=== PATIENT | female | born 1955 | race Caucasian/White ===

== ENCOUNTER 2019-02-15 13:07 | Inpatient (IN) | payer SELFPAY ==
[~2019-02-15] VITALS: Ht 162.6 cm; Wt 96.0 kg
[2019-02-15] MEDS ORDERED: IV NORMAL SALINE 1,000ML 1,000 ML IV ONE (13:15)
[2019-02-15 13:34] LABS: BASO # 0.1 x10^3/uL (0.0-0.2); BASO % 1 % (0-3); EOS # 0.2 x10^3/uL (0.0-0.7); EOS % 2 % (0-3); HEMATOCRIT 41.7 % (36.0-47.0); HEMOGLOBIN 13.6 g/dL (12.0-15.5); LYMPH # 1.8 x10^3/uL (1.0-4.8); LYMPH % 20 % (24-48); MEAN CORPUSCULAR HEMOGLOBIN 27 pg (25-35); MEAN CORPUSCULAR HGB CONC 33 g/dL (31-37); MEAN CORPUSCULAR VOLUME 83 fL (79-100); MONO # 0.7 x10^3/uL (0.0-1.1); MONO % 8 % (0-9); NEUT # 6.3 x10^3uL (1.8-7.7); NEUT % 70 % (31-73); PLATELET COUNT 289 x10^3/uL (140-400); RED BLOOD COUNT 5.03 x10^6/uL (3.50-5.40)
[2019-02-15 13:39] LABS: CALCIUM 9.6 mg/dL (8.5-10.1); CREATININE 1.1 mg/dL (0.6-1.0); GFR 50.2; POTASSIUM 3.2 mmol/L (3.5-5.1)
--- NOTE | 2019-02-15 13:39 | PHYS DOC ---
Adult General Chief Complaint Chief Complaint: SLURRED SPEECH HPI HPI 63-year-old female presents with slurred speech. The patient tells me that she noticed a change in her speech at least 24 hours ago, but maybe up to 3 days. She is not sure exactly how long. Her family started noticing slurring of speech yesterday and it has continued today so they encouraged her to come to the hospital. The patient also has bilateral lower extremity weakness. She is able to walk, but it is difficult. She tells me that the weakness has been worse for "some time". She is mostly here because of the change in speech. She has a history of macular edema and a possible occlusion of a vessel in her eye a year ago and she has been seeing a specialist for this. She otherwise has no history of stroke or cardiac dysfunction. She has no clotting disorders. She's never had a DVT or PE. She denies fever or chills. Review of Systems Review of Systems Constitutional: Denies fever or chills [] Eyes: Denies change in visual acuity, redness, or eye pain [] HENT: Slurred speech[] Respiratory: Denies cough or shortness of breath [] Cardiovascular: No additional information not addressed in HPI [] GI: Denies abdominal pain, nausea, vomiting, bloody stools or diarrhea [] : Denies dysuria or hematuria [] Musculoskeletal: Denies back pain or joint pain [] Integument: Denies rash or skin lesions [] Neurologic: Slurred speech. Global lower extremity weakness. Denies headache, focal weakness or sensory changes [] Endocrine: Denies polyuria or polydipsia [] All other systems were reviewed and found to be within normal limits, except as documented in this note. Current Medications Current Medications Current Medications Medications (Trade) Dose Ordered Sig/Fausto Start Time Stop Time Status Last Admin Dose Admin Sodium Chloride 1,000 ml @ 1,000 mls/hr 1X ONCE 02/15/19 13:15 02/15/19 14:14 Allergies Allergies Allergies Coded Allergies Type Severity Reaction Last Updated Verified No Known Drug Allergies 02/15/19 No Physical Exam Physical Exam Constitutional: Well developed, obese, well nourished, no acute distress, non- toxic appearance. [] HENT: Normocephalic, atraumatic, bilateral external ears normal, oropharynx moist, no oral exudates, nose normal. [] Eyes: PERRLA, EOMI, conjunctiva normal, no discharge. [] Neck: Normal range of motion, no tenderness, supple, no stridor. [] Cardiovascular:Heart rate regular rhythm, systolic murmur 3/6[] Lungs & Thorax: Bilateral breath sounds clear to auscultation [] Abdomen: Bowel sounds normal, soft, no tenderness, no masses, no pulsatile masses. [] Skin: Warm, dry, no erythema, no rash. [] Back: No tenderness, no CVA tenderness. [] Extremities: No tenderness, no cyanosis, no clubbing, ROM intact, no edema. [] Neurologic: Slurred speech. Alert and oriented X 3, normal sensory function. See NIHSS[] Psychologic: Affect normal, judgement normal, mood normal. [] EKG EKG [] Radiology/Procedures Radiology/Procedures [] Course & Med Decision Making Course & Med Decision Making Pertinent Labs and Imaging studies reviewed. (See chart for details) The patient's labs are unremarkable except for slightly low potassium. She has evidence a UTI and I will treat her with Rocephin. Her initial NIH stroke scale is a 7. The lower extremity symptoms may not be new. Her head CT is significant for several areas of hypoattenuation and old findings. There is nothing hyperacute. See official read for more details. She does meet criteria for thrombolytic therapy. I discussed the patient with the hospitalist, Dr. Hendricks and he has accepted the patient for admission. he will begin a more extensive workup. 43 minutes of critical care time was spent on this patient exclusive of other billable procedures. [] Dragon Disclaimer Dragon Disclaimer This electronic medical record was generated, in whole or in part, using a voice recognition dictation system. NIH Stroke Scale: NIH Stroke Scale Response (Comments) Value Level of Consciousness: 0 Alert/Responsive 0 LOC Questions: 0 Answers both correctly 0 LOC Commands: 0 Performs both tasks 0 Best Gaze: 0 Normal 0 Visual: 0 No visual loss 0 Facial Palsy: 0 Normal, symmetrical 0 Motor - Left Arm 0 No drift 0 Motor - Right Arm 0 No drift 0 Motor - Left Leg 2 Some effort 2 Motor: Right Leg 2 Some effort 2 Limb Ataxia: 2 Two limbs 2 Sensory: 0 No loss 0 Dysathria: 1 Mild to moderate 1 Extinction and Inattention: 0 Normal 0 Total 7 Departure Departure: Impression: Primary Impression: Stroke Disposition: 09 ADMITTED INPATIENT Admitting Physician: Tc Hendricks Condition: STABLE Referrals: TRINIDAD HINDS MD (PCP) Problem Qualifiers Primary Impression: Stroke CVA mechanism: thrombosis Precerebral and cerebral artery: posterior cerebral artery Laterality of affected vessel: left Qualified Codes: I63.332 - Cerebral infarction due to thrombosis of left posterior cerebral artery OLGA NOLAN DO Feb 15, 2019 13:39
[2019-02-15 13:45] LABS: ALBUMIN 3.8 g/dL (3.4-5.0); TOTAL BILIRUBIN 0.3 mg/dL (0.2-1.0); TOTAL PROTEIN 7.7 g/dL (6.4-8.2)
[2019-02-15] MEDS ORDERED: METOPROLOL TARTRATE 5 MG/5 ML VIAL. IV ONE ×3 (13:50→15:30)
--- NOTE | 2019-02-15 13:58 | RAD ---
CT HEAD WO CONTRAST History: Strokelike symptoms grade and 24 hours. Slurred speech. Comparison: None. Technique: Noncontrast CT imaging was performed of the head. Exposure: One or more of the following individualized dose reduction techniques were utilized for this examination: 1. Automated exposure control 2. Adjustment of the mA and/or kV according to patient size 3. Use of iterative reconstruction technique. Findings: Encephalomalacia within the left occipital lobe. Chronic right superior frontal cortical and subcortical infarct. Hypodensity aeration within the right centrum semiovale. Additional hypoattenuation within the right basal ganglia. Additional foci of decreased aeration within the hemispheric white matter. No acute intracranial hemorrhage. No hydrocephalus. No mass effect. Ex vacuo dilatation of the left posterior occipital horn. Incidentally noted small pineal cyst. Imaged orbits are unremarkable. Imaged paranasal sinuses and mastoid air cells are clear. Impression: 1. Chronic appearing right centrum semiovale and basal ganglia infarcts although age indeterminate. Recommend brain MRI to further evaluate. 2. Chronic right frontal and left CARDIOLOGY CONSULTANT territory infarct. Electronically signed by: Kvng Molina DO (02/15/2019 1:55 PM) [id number]
[2019-02-15 14:40] LABS: AMPHETAMINE/METHAMPHETAMINE NEG (NEG); BARBITURATES NEG (NEG); BENZODIAZEPINES NEG (NEG); CANNABINOIDS NEG (NEG); COCAINE NEG (NEG); METHADONE NEG (NEG); OPIATES NEG (NEG); PHENCYCLIDINE NEG (NEG)
[2019-02-15 14:49] LABS: BACTERIA,URINE MANY /HPF (0-FEW); BILIRUBIN,URINE NEG (NEG); CLARITY,URINE HAZY; COLOR,URINE YELLOW; GLUCOSE,URINE NEG (NEG); NITRITE,URINE NEG (NEG); SQUAMOUS EPITHELIAL CELL,UR MANY /LPF; UROBILINOGEN,URINE 0.2 mg/dL (0.2 mg/dL)
[2019-02-15] MEDS ORDERED: cefTRIAXone SODIUM 1 GM VIAL ONE (15:10)
[2019-02-15] MEDS ORDERED: IV NORMAL SALINE 50ML 50 ML ONE (15:10)
[2019-02-15 19:14] VITALS: BP 154/81
[2019-02-15] MEDS ORDERED: TRAV5DRO EACHEYE (19:40)
[2019-02-15] MEDS ORDERED: LISI1TAB20 PO (19:40)
[2019-02-15] MEDS ORDERED: METO-247 PO (19:40)
[2019-02-15] MEDS ORDERED: POTASSIUM CHLORIDE 20 MEQ TABLET.ER. PO ONE (21:00)
[2019-02-15] MEDS ORDERED: LATANOPROST 0.005% OPHTH SOLUTION 2.5ML BOTTLE. OU SCH (21:00)
[2019-02-15 21:01] VITALS: BP 147/87
[2019-02-15 22:00] VITALS: BP 140/65
[2019-02-15 23:00] VITALS: BP 127/70
[2019-02-16] VITALS (14 sets, daily range): BP systolic 127–175; BP diastolic 60–98
[2019-02-16 06:33] LABS: ALBUMIN 2.9 g/dL (3.4-5.0); ALBUMIN/GLOBULIN RATIO 0.9 (1.0-1.7); CALCIUM 8.4 mg/dL (8.5-10.1); CREATININE 0.9 mg/dL (0.6-1.0); GFR 63.2; POTASSIUM 3.7 mmol/L (3.5-5.1); TOTAL BILIRUBIN 0.4 mg/dL (0.2-1.0); TOTAL PROTEIN 6.2 g/dL (6.4-8.2)
--- NOTE | 2019-02-16 07:45 | PDOC2 ---
MINA SEGUNDO SOFTWARE PROJECT LEAD 02/16/19 0745: CARDIAC CONSULT DATE OF CONSULT Date Of Consult DATE: 02/16/19 TIME: 07:38 REASON FOR CONSULT Reason for Consult Hypertension REFERRING PHYSICIAN Referring Physician Dr. Hendricks SOURCE Source: Chart review, Patient HPI History of Present Illness This is a 63 yo female who presented secondary to slurred speech. Patient reports noticing a change in her speech about 2 days ago. Family encouraged her to seek medical help. Called PCP, Dr. Xiao, who referred her to go the the ED for further evaluation and treatment. Has a history of hypertension. Reports compliance with medications. Blood pressure significantly elevated upon arrival and was initiated on Cardene gtt. Denies any SUN, CP, dizziness, palpitations, SOA, nausea/vomiting, or extremity weakness. Speech has slightly improved, but continues to be slurred from baseline. 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 Has been out of insurance coverage since December. Had to sell home and relocated to an apartment in [place] that is closer to her husbands work. PAST MEDICAL HISTORY Cardiovascular: HTN Musculoskeletal: Osteoarthritis PAST SURGICAL HISTORY Past Surgical History: Tubal Ligation, Tonsillectomy FAMILY HISTORY Family History: Hypertension SOCIAL HISTORY Smoke: No ALCOHOL: none Drugs: None Lives: with Family CURRENT MEDICATIONS Current Medications Current Medications Sodium Chloride 1,000 ml @ 1,000 mls/hr 1X ONCE IV Last administered on 02/15/19at 13:38; Start 02/15/19 at 13:15; Stop 02/15/19 at 14:14; Status DC Metoprolol Tartrate (Lopressor Vial) 5 mg 1X ONCE IV Last administered on 02/15/19at 13:53; Start 02/15/19 at 14:00; Stop 02/15/19 at 14:01; Status DC Metoprolol Tartrate (Lopressor Vial) 5 mg STK-MED ONCE IV ; Start 02/15/19 at 13:50; Stop 02/15/19 at 13:50; Status DC Ceftriaxone Sodium 1 gm/ Sodium Chloride 50 ml @ 100 mls/hr 1X ONCE IV Last administered on 02/15/19at 15:26; Start 02/15/19 at 15:15; Stop 02/15/19 at 15:44; Status DC Metoprolol Tartrate (Lopressor Vial) 5 mg 1X ONCE IV Last administered on 02/15/19at 15:22; Start 02/15/19 at 15:30; Stop 02/15/19 at 15:31; Status DC Sodium Chloride 50 ml @ As Directed STK-MED ONCE .ROUTE ; Start 02/15/19 at 15:10; Stop 02/15/19 at 15:10; Status DC Ceftriaxone Sodium (Rocephin) 1 gm STK-MED ONCE .ROUTE ; Start 02/15/19 at 15:10; Stop 02/15/19 at 15:10; Status DC Nicardipine HCl 50 mg/Sodium Chloride 270 ml @ 27 mls/hr CONT PRN IV SEE I/O RECORD Last administered on 02/15/19at 16:55; Start 02/15/19 at 16:30 Lisinopril (Prinivil) 20 mg DAILY PO ; Start 02/16/19 at 09:00 Metoprolol Succinate (Toprol Xl) 100 mg DAILY PO ; Start 02/16/19 at 09:00 Latanoprost (Xalatan) 1 drop QHS OU ; Start 02/15/19 at 21:00; Stop 02/15/19 at 21:06; Status DC Potassium Chloride (Klor-Con) 40 meq 1X ONCE PO Last administered on 02/15/19at 20:52; Start 02/15/19 at 21:00; Stop 02/15/19 at 21:01; Status DC Hydrochlorothiazide (Hydrodiuril) 25 mg DAILY PO ; Start 02/16/19 at 09:00 Non-Formulary Medication 1 ea QHS OU ; Start 02/16/19 at 21:00 Active Scripts Active Reported Travatan Z (Travoprost) 5 Ml Drops 1 Drop EACHEYE QHS Metoprolol Succinate ( Xl ) (Metoprolol Succinate) 100 Mg Tab.er.24h 100 Mg PO DAILY Lisinopril-Hctz 20-25 Mg Tab (Lisinopril/Hydrochlorothiazide) 1 Each Tablet 1 Tab PO DAILY ALLERGIES Allergies: Uncoded Allergies: codein (Allergy, Mild, Nausea and Vomiting, 02/15/19) ROS Review of Systems 14 point ROS conducted with pertinent positives noted above in HPI PHYSICAL EXAM General: Alert, Oriented X3, Cooperative, No acute distress HEENT: Atraumatic, Mucous membr. moist/pink Lungs: Clear to auscultation, Normal air movement Heart: Regular rate, Other Abdomen: Soft, No tenderness Extremities: No edema, Normal pulses Skin: No breakdown Neuro: Sensation intact, Other (slurred speach) Psych/Mental Status: Mental status NL, Other (tearful) MUSCULOSKELETAL: Osteoarthritic changes both hands VITALS Vital Signs Vital Signs Date Time Temp Pulse Resp B/P (MAP) Pulse Ox O2 Delivery O2 Flow Rate FiO2 02/16/19 07:28 89 17 150/77 (101) 98 Room Air 02/16/19 04:00 98.2 LABS LABS Laboratory Tests Test 02/15/19 13:10 02/15/19 14:15 02/16/19 05:34 White Blood Count 9.0 x10^3/uL (4.0-11.0) Red Blood Count 5.03 x10^6/uL (3.50-5.40) Hemoglobin 13.6 g/dL (12.0-15.5) Hematocrit 41.7 % (36.0-47.0) Mean Corpuscular Volume 83 fL (79-100) Mean Corpuscular Hemoglobin 27 pg (25-35) Mean Corpuscular Hemoglobin Concent 33 g/dL (31-37) Red Cell Distribution Width 16.0 % (11.5-14.5) Platelet Count 289 x10^3/uL (140-400) Neutrophils (%) (Auto) 70 % (31-73) Lymphocytes (%) (Auto) 20 % (24-48) Monocytes (%) (Auto) 8 % (0-9) Eosinophils (%) (Auto) 2 % (0-3) Basophils (%) (Auto) 1 % (0-3) Neutrophils # (Auto) 6.3 x10^3uL (1.8-7.7) Lymphocytes # (Auto) 1.8 x10^3/uL (1.0-4.8) Monocytes # (Auto) 0.7 x10^3/uL (0.0-1.1) Eosinophils # (Auto) 0.2 x10^3/uL (0.0-0.7) Basophils # (Auto) 0.1 x10^3/uL (0.0-0.2) Prothrombin Time 9.7 SEC (9.4-11.4) Prothromb Time International Ratio 0.9 (0.9-1.1) Activated Partial Thromboplast Time 28 SEC (23-33) Sodium Level 133 mmol/L (136-145) 141 mmol/L (136-145) Potassium Level 3.2 mmol/L (3.5-5.1) 3.7 mmol/L (3.5-5.1) Chloride Level 99 mmol/L (98-107) 109 mmol/L (98-107) Carbon Dioxide Level 29 mmol/L (21-32) 27 mmol/L (21-32) Anion Gap 5 (6-14) 5 (6-14) Blood Urea Nitrogen 13 mg/dL (7-20) 9 mg/dL (7-20) Creatinine 1.1 mg/dL (0.6-1.0) 0.9 mg/dL (0.6-1.0) Estimated GFR (Cockcroft-Gault) 50.2 63.2 BUN/Creatinine Ratio 12 (6-20) 10 (6-20) Glucose Level 106 mg/dL (70-99) 95 mg/dL (70-99) Calcium Level 9.6 mg/dL (8.5-10.1) 8.4 mg/dL (8.5-10.1) Total Bilirubin 0.3 mg/dL (0.2-1.0) 0.4 mg/dL (0.2-1.0) Aspartate Amino Transf (AST/SGOT) 21 U/L (15-37) 20 U/L (15-37) Alanine Aminotransferase (ALT/SGPT) 30 U/L (14-59) 26 U/L (14-59) Alkaline Phosphatase 106 U/L (46-116) 71 U/L (46-116) Total Protein 7.7 g/dL (6.4-8.2) 6.2 g/dL (6.4-8.2) Albumin 3.8 g/dL (3.4-5.0) 2.9 g/dL (3.4-5.0) Albumin/Globulin Ratio 1.0 (1.0-1.7) 0.9 (1.0-1.7) Urine Collection Type Unknown Urine Color Yellow Urine Clarity Hazy Urine pH 5.5 Urine Specific [place] 1.025 Urine Protein Neg (NEG-TRACE) Urine Glucose (UA) Neg mg/dL (NEG) Urine Ketones (Stick) 15 mg/dL (NEG) Urine Blood Neg (NEG) Urine Nitrite Neg (NEG) Urine Bilirubin Neg (NEG) Urine Urobilinogen Dipstick 0.2 mg/dL (0.2 mg/dL) Urine Leukocyte Esterase Mod (NEG) Urine RBC 1-2 /HPF (0-2) Urine WBC 11-20 /HPF (0-4) Urine Squamous Epithelial Cells Many /LPF Urine Bacteria Many /HPF (0-FEW) Urine Opiates Screen Neg (NEG) Urine Methadone Screen Neg (NEG) Urine Barbiturates Neg (NEG) Urine Phencyclidine Screen Neg (NEG) Urine Amphetamine/Methamphetamine Neg (NEG) Urine Benzodiazepines Screen Neg (NEG) Urine Cocaine Screen Neg (NEG) Urine Cannabinoids Screen Neg (NEG) Urine Ethyl Alcohol Neg (NEG) ASSESSMENT/PLAN Assessment/Plan 1. Slurred speech; onset 2 days ago 2. Hypertensive urgency; off Cardene gtt 3. 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 Further workup per neuro ROYER LEE MD 02/18/19 0547: CARDIAC CONSULT ASSESSMENT/PLAN Assessment/Plan Late entry for 02/16/2019 Pt. seen and examined. Agree with above DISK SANDER note, Discussed with family. . EKG/echo wnl. Negative carotid doppler. Discussed that she could consider outpt event recorder. ASA for now and consider anticoagulation based on neuro eval. MINA SEGUNDO APRN Feb 16, 2019 07:45 ROYER LEE MD Feb 18, 2019 05:47
[2019-02-16] MEDS ORDERED: LISINOPRIL 20 MG TABLET PO SCH (09:00)
[2019-02-16] MEDS: hydroCHLOROthiazide 25 MG TABLET PO SCH (09:44)
[2019-02-16] MEDS: METOPROLOL SUCC 24HR ER 50 MG TAB.ER.24H. PO SCH (09:45)
[2019-02-16] MEDS: ASPIRIN 325 MG TABLET PO SCH (10:17)
--- NOTE | 2019-02-16 11:53 | RAD ---
Carotid doppler ultrasound History: CVA Multiple grayscale, color, and duplex spectral analysis waveform sonographic images were acquired of the carotid, subclavian, and vertebral arteries. Comparison: None Findings: RIGHT: PSV cm/sec EDV cm/sec Common carotid artery 56 15 Maximal internal carotid artery 49 16 External carotid artery 83 Vertebral artery 25 ICA/CCA ratio 0.9 LEFT: PSV cm/sec EDV cm/sec Common carotid artery 63 19 Maximum internal carotid artery 64 23 External carotid artery 95 Vertebral artery 45 ICA/CCA ratio 1 Velocities used to determine stenosis are known to correlate with NASCET angiographic criteria. There is antegrade flow in the bilateral vertebral arteries. There is mild plaque bilaterally. Impression: 1. There is no evidence of a hemodynamically significant stenosis. There is mild plaque bilaterally. Electronically signed by: Dakota Greene MD (02/16/2019 11:50 AM) [facility]
--- NOTE | 2019-02-16 15:44 | HP ---
ADMIT DATE: 02/15/2019 HISTORY OF PRESENT ILLNESS: The patient is a 63-year-old female patient, who presented to the Emergency Room secondary to slurring of speech. She reports that she noticed change in her speech about 2 days ago. Her family encouraged her to seek medical help. She called her primary care physician who referred her to the Emergency Room for further evaluation and treatment. She apparently has history of hypertension and reports compliance with medication; however, her blood pressure was significantly elevated on arrival, she was started on Cardizem drip. She denied any headache, chest pain, dizziness, lightheadedness, palpitation, nausea, vomiting, or extremity weakness. She, however, continued to have slurring of speech. 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 She has been out of insurance coverage since December and apparently she sold her home and relocated to an apartment in [place] that is closer to her 's work. She was investigated in the Emergency Room, had a CT scan of the head, which showed chronic appearing right centrum semiovale and basal ganglia infarct, although age indeterminate. Has also chronic right frontal and left posterior cerebral artery territory infarct. The patient was admitted to control blood pressure, check her carotid Doppler ultrasound also, do an echocardiogram as her multiple infarcts indicating that this might be cardioembolic in nature. PAST MEDICAL HISTORY: Significant for hypertension, generalized osteoarthritis. PAST SURGICAL HISTORY: Significant for tubal ligation, tonsillectomy. FAMILY HISTORY: Positive for hypertension. SOCIAL HISTORY: She is . She does not smoke, drink alcohol or use any recreational drugs. 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 MEDICATIONS: She is currently on following medications: She is on metoprolol succinate 100 mg once a day, lisinopril/hydrochlorothiazide 20/25 one tablet once a day, and travoprost for Travatan 1 drop to both eyes at bedtime. REVIEW OF SYSTEMS: As per history of present illness. PHYSICAL EXAMINATION: GENERAL: On arrival to the Emergency Room, there was no pallor, jaundice, cyanosis or thyromegaly. No jugular venous distention. No lower limb edema. VITAL SIGNS: Her heart rate was 116, blood pressure was 171/98, temperature 98.5, respiratory rate was 15 and oxygen saturation was 98% on room air. HEAD, EYES, EARS, NOSE AND THROAT: Showed normocephalic, atraumatic. NECK: Supple. HEART: Showed normal first and second heart sounds. No gallop, rub or murmur. CHEST: Clear to auscultation. No crepitation or rhonchi. ABDOMEN: Distended, soft, nontender. NEUROLOGIC: She has slurring speech. She was alert, oriented x 3 with normal specific. function. Her affect, judgment and mood were normal. LABORATORY DATA: Showed that her white cell count was 9000, hemoglobin 13.6, hematocrit 41.7, MCV 83 and platelet count 289,000 with normal manual differential. Her chemistry showed a serum sodium 133, potassium 3.2, chloride 99, bicarbonate 29, anion gap of 5, BUN 13, creatinine 1.1, estimated GFR was 50 mL per minute. Her glucose was 106, calcium was 9.6. Total bilirubin, AST, ALT, alkaline phosphatase were normal. Her total protein was 7.7, albumin 3.8. Her prothrombin time, INR and aPTT are all normal. Urinalysis showed the urine was yellow, hazy with a pH of 5.5, specific gravity of 1.025. The urine was negative for protein, glucose, trace of ketones, negative for blood, nitrite. There are moderate amount of leukocyte esterase, 1-2 rbc's, 11-20 wbc's, and many bacteria. Toxic screen was essentially negative and her CT scan of the head showed that she has encephalomalacia within the left occipital lobe. She has chronic right superior frontal lobe cortical and subcortical infarct, hypodensity, aeration within the right centrum semiovale. Additional hypoattenuation within the right basal ganglia, additional foci of decreased aeration within the hemispheric white matter, no acute intracranial hemorrhage, no hydrocephalus, no mass effect, ex vacuo dilatation of the left posterior occipital horn. Incidentally noted small pineal cyst. Imaged orbits are unremarkable. Paranasal sinuses and mastoid cells are clear. The impression is the patient has chronic appearing right centrum semiovale and basal ganglia infarct, although age indeterminate. Has chronic right frontal and left posterior cerebral artery territory infarct. ASSESSMENT AND PLAN: The patient was admitted to investigate to evaluate further. We will check her bilateral carotid artery ultrasound as well as echocardiogram with bubble study and fasting lipid profile. CELIO VALDOVINOS MD DR: Jill JOB#: [id number] / [id number]
--- NOTE | 2019-02-16 15:53 | CARD ---
MR#: [id number] Date of Study: 02/16/2019 Ordering Physician: MINA SEGUNDO, Referring Physician: MINA SEGUNDO, Tech: Ann Nunez APPROVED REPORT EXAM: Two-dimensional and M-mode echocardiogram with Doppler and color Doppler. Other Information Quality : AverageHR: 100bpm INDICATION CVA/TIA Atrial Fibrillation Echo Enhancing Agent Indication: Rule Out Septal Defect Agent/Amount Used: Agitated [id number] 2D DIMENSIONS RVDd2.9 (2.9-3.5cm)Left Atrium(2D)2.7 (1.6-4.0cm) IVSd1.3 (0.7-1.1cm)Aortic Root(2D)2.6 (2.0-3.7cm) LVDd4.4 (3.9-5.9cm)LVOT Diameter1.9 (1.8-2.4cm) PWd1.0 (0.7-1.1cm)LVDs1.7 (2.5-4.0cm) FS (%) 61.9 %SV81.0 ml LVEF(%)90.8 (>50%) Aortic Valve AoV Peak Rojelio.169.3cm/sAoV VTI33.0cm AO Peak GR.11.5mmHgLVOT Peak Rojelio.152.1cm/s LVOT VTI 31.84cmAO Mean GR.7mmHg CARLO (VMAX)2.32ub5NSW (VTI)2.77cm2 Mitral Valve MV E Uhhlrkjx27.4cm/sMV DECEL [id number] MV A Rdssyhpp963.3cm/sE/A Ratio0.8 Pulmonary Valve PV Peak Knarwxqj32.1cm/sPV Peak Grad.4mmHg Tricuspid Valve TR P. Ncfryrnz371tw/sRAP MRQPSFTN8vmRr TR Peak Gr.56exYiEUUB50bjPm Pulmonary Vein S1 Keorpwdk12.3cm/sD2 Xombzcvi25.4cm/s LEFT VENTRICLE The left ventricle is normal size. There is mild to moderate concentric left ventricular hypertrophy. The left ventricular systolic function is normal. The Ejection Fraction is 65-70%. There is normal L V segmental wall motion. Transmitral Doppler flow pattern is Grade I-abnormal relaxation pattern. RIGHT VENTRICLE The right ventricle is normal size. There is normal right ventricular wall thickness. The right ventr icular systolic function is normal. ATRIA The left atrium size is normal. The right atrium size is normal. The interatrial septum is intact wit h no evidence for an atrial septal defect or patent foramen ovale as noted on 2-D or Doppler imaging. Injection of bubbles documented no interatrial shunt. AORTIC VALVE The aortic valve is normal in structure and function. Doppler and Color Flow revealed no significant aortic regurgitation. There is no significant aortic valvular stenosis. MITRAL VALVE The mitral valve is normal in structure and function. There is no evidence of mitral valve prolapse. There is no mitral valve stenosis. Doppler and Color Flow revealed no mitral valve regurgitation note d. TRICUSPID VALVE The tricuspid valve is normal in structure and function. Doppler and Color Flow revealed trace tricus pid regurgitation with an estimated PAP of 21 mmHg. There is no tricuspid valve stenosis. PULMONIC VALVE The pulmonic valve is not well visualized. Doppler and Color Flow revealed no pulmonic valvular regur gitation. GREAT VESSELS The aortic root is normal in size. The IVC was not well visualized. PERICARDIAL EFFUSION There is no evidence of significant pericardial effusion. Critical Notification Critical Value: No <Conclusion> The left ventricular systolic function is normal. The Ejection Fraction is 65-70%. There is normal LV segmental wall motion. Transmitral Doppler flow pattern is Grade I-abnormal relaxation pattern. Trace tricuspid regurgitation with an estimated PAP of 21 mmHg. There is no evidence of significant pericardial effusion. Injection of bubbles documented no interatrial shunt. Signed by : Nahum Valdivia, Electronically Approved : 02/16/2019 15:52:53
[2019-02-16] MEDS: LISINOPRIL 20 MG TABLET PO SCH (17:20)
[2019-02-16] MEDS ORDERED: TRAVOPROST 0.004% OU SCH (21:00)
[2019-02-16] MEDS ORDERED: SIMVASTATIN 10 MG TABLET PO SCH (21:00)
--- NOTE | 2019-02-17 00:32 | CONS ---
DATE OF CONSULTATION: REFERRING PHYSICIAN: Dr. Hendricks. REASON FOR CONSULTATION: Rule out stroke versus TIA. HISTORY OF PRESENT ILLNESS: This is a 63-year-old right-handed female who was admitted to the Emergency Room on account of a sudden onset of slurred speech of 2 days' duration. On the admission, the patient was found to have high blood pressure. She denies chest pain, shortness of breath or palpitation, dysphagia, diplopia, headaches or weakness. 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 The patient stated she never had any stroke workup in the past. PAST MEDICAL HISTORY: Significant for macular edema, required intraocular injection, cataracts, glaucoma, hypertension, and osteoarthritis. PAST SURGICAL HISTORY: Significant for tonsillectomy and adenoidectomy, x 2 and tubal ligation. SOCIAL HISTORY: The patient is . She denies smoking, alcohol drinking, or illicit drug use. CURRENT HOME MEDICATIONS: Lisinopril/hydrochlorothiazide, metoprolol, travoprost eyedrops for glaucoma. ALLERGIES: CODEINE. REVIEW OF SYSTEMS: A 10-point review of system was performed as mentioned above in history of present illness. Also, the patient complains of pain of the right hip and left knee likely secondary to osteoarthritis and forearm numbness and paresthesia of the hands along with mild slurred speech. PHYSICAL EXAMINATION: GENERAL: Well-developed, well-nourished female, not in acute distress. She weighs 96.6 kilos. VITAL SIGNS: Blood pressure 175/89, respiratory rate 20, pulse is 101 and regular, oxygen saturation is 98% on room air. HEENT: Normocephalic, atraumatic, otherwise unremarkable. NECK: Supple. Negative for carotid bruit, lymphadenopathy or thyromegaly. LUNGS: Clear to A and P. CARDIOVASCULAR: Tachycardia, but no murmur. Normal S1, S2. ABDOMEN: Soft. Bowel sounds positive. EXTREMITIES: Negative for cyanosis, clubbing or pitting edema. NEUROLOGICAL EXAMINATION: Mental status; the patient is alert and oriented x 3. Speech is fluent. There is no language dysfunction. There is no dysarthria. Memory, judgment, and abstract thinking are normal. The patient denies hallucination or delusion. CRANIAL NERVES: Visual peters are full. The pupils are reactive to light and accommodation. Extraocular movements are intact. There is no nystagmus. There is no facial motor or sensory deficit. Hearing is intact bilaterally. The palate is elevated symmetrically. Sternocleidomastoid muscles are powerful bilaterally. The patient shrugs her shoulder symmetrically, protrudes her tongue in the midline without fasciculation or atrophy. MOTOR EXAMINATION: No focal muscle bulk was seen. The tone is normal. The strength is 5/5 throughout. SENSORY EXAMINATION: Revealed normal pinprick, light touch, vibratory and position senses. Deep tendon reflexes were asymmetric and hypoactive with absent Achilles responses. Gait: The stance is steady. LABORATORY DATA: CBC revealed white blood cells of 9000, hemoglobin 13.6, hematocrit 41.7, platelet count 289,000. Chemistry revealed sodium of 141, potassium 3.7, chloride 109, CO2 of 27, BUN 9, creatinine 0.9, calcium 8.4. ____ PT and PTT are normal. Urinalysis is consistent with moderate urinary leukocyte esterase and white blood cells along with many bacteria. Urine drug screen is negative. IMPRESSION: 1. New onset of slurred speech with abnormal head CT scan consistent with multiple infarcts in different territories, rule out cardiac embolisms. 2. Longstanding history of hypertension, glaucoma, cataracts, and osteoarthritis. RECOMMENDATION: 1. Stroke pathway includes brain MRI, echocardiogram, carotid Doppler study, lipid profile, speech therapy. 2. We will start the patient on aspirin 325 mg. 3. Continue with current management initiated by Dr. Hendricks. M Randee DSOUZA MD DR: DANIEL/oneil JOB#: [id number] / [id number]
--- NOTE | 2019-02-17 02:48 | PN ---
DATE: SUBJECTIVE: The patient is a 63-year-old female patient who was admitted yesterday with slurring of speech that has started few days ago. Denied any localized weakness. She had a CT scan, which showed that she has multiple infarcts. She has chronic appearing right centrum semiovale and ganglia infarcts, although age indeterminate. She has also chronic right frontal and left posterior cerebral artery territory infarct. She was admitted, started on Cardene drip because his blood pressure was high and was started on metoprolol, aspirin as well as lisinopril and she was evaluated by the neurologist as well as the driveway sealer. She has had bilateral carotid Doppler ultrasound, which showed that there is no evidence of hemodynamically significant stenosis. There is mild plaque bilaterally. She also had had an echocardiogram done, which basically showed that she has left ventricular systolic function is normal, ejection fraction 65-70%. There is normal left ventricular segmental wall motion. Transmitral Doppler flow pattern is grade 1 abnormal relaxation pattern. There are trace tricuspid regurgitation, estimated pulmonary artery pressure 21. There is no evidence of significant pericardial effusion and injection of bubbles documented, no interatrial shunt. PHYSICAL EXAMINATION: GENERAL: When I examined her this afternoon, she was sitting comfortably in her chair, in no apparent respiratory distress. No pallor, jaundice, cyanosis or thyromegaly. No jugular venous distention. No limb edema. VITAL SIGNS: Her heart rate was 92, blood pressure was 168/86, temperature was 98.2, respiratory rate was 18 and oxygen saturation was 96% on room air. HEAD, EYES, EARS, NOSE AND THROAT: Showed normocephalic, atraumatic. NECK: Supple. HEART: Showed normal first and second heart sounds. No gallop or murmur. CHEST: Clear to auscultation. No crepitation or rhonchi. ABDOMEN: Distended, soft, nontender. NEUROLOGIC: She does have slurring speech. Other cranial nerves seemed to be intact. She moves all extremities without difficulty. She ambulates with a walker. LABORATORY DATA: Her lab work this morning showed a serum sodium 141, potassium 3.7, chloride 109, bicarbonate 27, anion gap of 5, BUN 9, creatinine 0.9, estimated GFR was 63 mL per minute. Glucose was 95, calcium was 8.4. Total bilirubin, AST, ALT, alkaline phosphatase were normal. Total protein 6.2, albumin 2.9. Her prothrombin time, INR and aPTT were normal. Toxic screen was negative. ASSESSMENT: In summary, this is a 63-year-old female patient who came in with slurring of speech. Her CT scan showed multiple infarcts involving the basal ganglia, chronic right frontal and left posterior cerebral artery infarct. She did have also hypokalemia and mild hyponatremia and has hypertensive urgency. Her echocardiogram did not show any evidence of intracardiac shunt and her ejection fraction was 65-70%. The bilateral carotid Doppler ultrasound showed no evidence of significant hemodynamic stenosis. PLAN: My plan is to increase her lisinopril to 20 mg twice a day and we will wait for her fasting lipid profile. She probably needs to be started on lipid lowering agent and she can be discharged home tomorrow. CELIO VALDOVINOS MD DR: JONATHAN/oneil JOB#: [id number] / [id number]
[2019-02-17 05:49] VITALS: BP 168/70
--- NOTE | 2019-02-17 08:17 | PDOC ---
CARDIO Progress Notes Date & Time Date of Service DATE: 02/17/19 TIME: 08:10 Time of Evaluation 08:10 Subjective Notes speech continues to be slurred Vitals Vitals Vital Signs Date Time Temp Pulse Resp B/P (MAP) Pulse Ox O2 Delivery O2 Flow Rate FiO2 02/17/19 07:52 Room Air 02/17/19 05:49 97.9 80 18 168/70 (102) 98 Weight Weight [ ] Input and Output I.O. Intake and Output 02/17/19 06:59 Intake Total 1600 ml Output Total 1 ml Balance 1599 ml Intake Oral 1600 ml Output Stool Total 1 ml # Voids 7 Laboratory Labs Laboratory Tests Test 02/15/19 13:10 02/15/19 14:15 02/16/19 05:34 02/16/19 14:00 White Blood Count 9.0 x10^3/uL (4.0-11.0) Red Blood Count 5.03 x10^6/uL (3.50-5.40) Hemoglobin 13.6 g/dL (12.0-15.5) Hematocrit 41.7 % (36.0-47.0) Mean Corpuscular Volume 83 fL (79-100) Mean Corpuscular Hemoglobin 27 pg (25-35) Mean Corpuscular Hemoglobin Concent 33 g/dL (31-37) Red Cell Distribution Width 16.0 % (11.5-14.5) Platelet Count 289 x10^3/uL (140-400) Neutrophils (%) (Auto) 70 % (31-73) Lymphocytes (%) (Auto) 20 % (24-48) Monocytes (%) (Auto) 8 % (0-9) Eosinophils (%) (Auto) 2 % (0-3) Basophils (%) (Auto) 1 % (0-3) Neutrophils # (Auto) 6.3 x10^3uL (1.8-7.7) Lymphocytes # (Auto) 1.8 x10^3/uL (1.0-4.8) Monocytes # (Auto) 0.7 x10^3/uL (0.0-1.1) Eosinophils # (Auto) 0.2 x10^3/uL (0.0-0.7) Basophils # (Auto) 0.1 x10^3/uL (0.0-0.2) Prothrombin Time 9.7 SEC (9.4-11.4) Prothromb Time International Ratio 0.9 (0.9-1.1) Activated Partial Thromboplast Time 28 SEC (23-33) Sodium Level 133 mmol/L (136-145) 141 mmol/L (136-145) Potassium Level 3.2 mmol/L (3.5-5.1) 3.7 mmol/L (3.5-5.1) Chloride Level 99 mmol/L (98-107) 109 mmol/L (98-107) Carbon Dioxide Level 29 mmol/L (21-32) 27 mmol/L (21-32) Anion Gap 5 (6-14) 5 (6-14) Blood Urea Nitrogen 13 mg/dL (7-20) 9 mg/dL (7-20) Creatinine 1.1 mg/dL (0.6-1.0) 0.9 mg/dL (0.6-1.0) Estimated GFR (Cockcroft-Gault) 50.2 63.2 BUN/Creatinine Ratio 12 (6-20) 10 (6-20) Glucose Level 106 mg/dL (70-99) 95 mg/dL (70-99) Calcium Level 9.6 mg/dL (8.5-10.1) 8.4 mg/dL (8.5-10.1) Total Bilirubin 0.3 mg/dL (0.2-1.0) 0.4 mg/dL (0.2-1.0) Aspartate Amino Transf (AST/SGOT) 21 U/L (15-37) 20 U/L (15-37) Alanine Aminotransferase (ALT/SGPT) 30 U/L (14-59) 26 U/L (14-59) Alkaline Phosphatase 106 U/L (46-116) 71 U/L (46-116) Total Protein 7.7 g/dL (6.4-8.2) 6.2 g/dL (6.4-8.2) Albumin 3.8 g/dL (3.4-5.0) 2.9 g/dL (3.4-5.0) Albumin/Globulin Ratio 1.0 (1.0-1.7) 0.9 (1.0-1.7) Urine Collection Type Unknown Urine Color Yellow Urine Clarity Hazy Urine pH 5.5 Urine Specific [place] 1.025 Urine Protein Neg (NEG-TRACE) Urine Glucose (UA) Neg mg/dL (NEG) Urine Ketones (Stick) 15 mg/dL (NEG) Urine Blood Neg (NEG) Urine Nitrite Neg (NEG) Urine Bilirubin Neg (NEG) Urine Urobilinogen Dipstick 0.2 mg/dL (0.2 mg/dL) Urine Leukocyte Esterase Mod (NEG) Urine RBC 1-2 /HPF (0-2) Urine WBC 11-20 /HPF (0-4) Urine Squamous Epithelial Cells Many /LPF Urine Bacteria Many /HPF (0-FEW) Urine Opiates Screen Neg (NEG) Urine Methadone Screen Neg (NEG) Urine Barbiturates Neg (NEG) Urine Phencyclidine Screen Neg (NEG) Urine Amphetamine/Methamphetamine Neg (NEG) Urine Benzodiazepines Screen Neg (NEG) Urine Cocaine Screen Neg (NEG) Urine Cannabinoids Screen Neg (NEG) Urine Ethyl Alcohol Neg (NEG) Thyroid Stimulating Hormone (TSH) 1.281 uIU/mL (0.358-3.740) Triglycerides Level 78 mg/dL (0-150) Cholesterol Level 210 mg/dL (0-200) LDL Cholesterol, Calculated 134 mg/dL (0-100) VLDL Cholesterol, Calculated 15 mg/dL (0-40) Non-HDL Cholesterol Calculated 149 mg/dL (0-129) HDL Cholesterol 61 mg/dL (40-60) Cholesterol/HDL Ratio 3.0 Microbiology Micro Microbiology 02/15/19 Urine Culture - Final, Complete 02/15/19 Urine Culture Result 1 (LD) - Final, Complete Physical Exams HEENT: Neck Supple W Full Motion Chest: Symmetric Lungs: Clear to Auscultation Heart: S1S2, RRR Abdomen: Soft N/T Extremities: No Edema Neurology: alert, oriented, follow commands Assessment Assessment 1. New onset slurred speech. CT head with multiple chronic infarcts. Echo showed preserved LV systolic function. No evidence of interatrial shunt. 2. Hypertensive urgency; remains elevated 3. Dyslipidemia 4. Hypokalemia; resolved Recommendations Secondary prevention Increase statin Add amlodipine for BP control Will ideally need outpatient event monitor or ILR to r/o contributing arrhythmias such as AFIB/flutter, but unlikely that patient will be able to afford this. PT/OT/ST Supportive care MINA SEGUNDO APRN Feb 17, 2019 08:17
[2019-02-17] MEDS: ASPIRIN 325 MG TABLET PO SCH (08:40)
[2019-02-17] MEDS: LISINOPRIL 20 MG TABLET PO SCH (08:41)
[2019-02-17] MEDS: METOPROLOL SUCC 24HR ER 50 MG TAB.ER.24H. PO SCH (08:41)
[2019-02-17] MEDS: hydroCHLOROthiazide 25 MG TABLET PO SCH (08:42)
[2019-02-17] MEDS ORDERED: amLODIPine BESYLATE 5 MG TABLET PO SCH (09:00)
[2019-02-17 10:28] VITALS: BP 160/90
[2019-02-17 14:22] VITALS: BP 164/99
[2019-02-17] MEDS ORDERED: ATOR20TA PO (16:10)
[2019-02-17] MEDS ORDERED: AMLO10TA8 PO (16:10)
[2019-02-17] MEDS ORDERED: HYDR-2145 PO (16:10)
[2019-02-17] MEDS ORDERED: LISI-334 PO (16:10)
[2019-02-17] MEDS ORDERED: ASPI325T8 PO (16:10)
--- NOTE | 2019-02-17 20:24 | DS ---
DATE OF DISCHARGE: 02/17/2019 HOSPITAL COURSE: The patient is a 63-year-old female patient who came with slurring of her speech and hypertensive urgency. She was extensively investigated and a CT scan showed that she has multiple infarcts including chronic appearing right centrum semiovale and basal ganglia infarct. She also has chronic right frontal and left posterior cerebral artery territory infarct. She was found also to have hyperlipidemia and her blood pressure was extremely high and we made adjustment of her antihypertensive medication that is now better, but not optimally yet controlled. PHYSICAL EXAMINATION: GENERAL: When I examined her today, she was sitting on the edge of the bed comfortably, in no apparent respiratory distress. No pallor, jaundice, cyanosis or thyromegaly. No jugular venous distention. No limb edema. VITAL SIGNS: Her heart rate was 96, blood pressure was 164/99, temperature 98.6, respiratory rate was 18 and oxygen saturation was 98%. HEAD, EYES, EARS, NOSE AND THROAT: Showed normocephalic, atraumatic. NECK: Supple. HEART: Showed normal first and second heart sounds. No gallop, rub or murmur. CHEST: Clear to auscultation. No crepitation or rhonchi. ABDOMEN: Distended, soft, nontender. NEUROLOGIC: She was grossly intact. LABORATORY DATA: As of this morning showed a serum sodium 141, potassium 3.7, chloride 109, bicarbonate 27, anion gap of 5, BUN 9, creatinine 0.9, estimated GFR was 63 mL per minute. Her glucose was 95, calcium was 8.4. Total bilirubin, AST, ALT, alkaline phosphatase were normal. Total protein 6.2, albumin 2.9. Her serum triglycerides were 78, total cholesterol 210, LDL was 134, VLDL was 15 and HDL was 61. Ratio was 3. TSH was 1.81. Her white cell count was 9000, hemoglobin 14, hematocrit 42, MCV 83 and platelet count 289,000. Her prothrombin time, INR and aPTT were all normal. Her urinalysis was unremarkable and her toxic screen was positive. Her urine cultures showed no growth. DISCHARGE MEDICATIONS: She was discharged home to continue on atorvastatin 20 mg at bedtime, amlodipine 10 mg once a day, lisinopril 20 mg twice a day, aspirin 325 mg once a day, hydrochlorothiazide 25 mg once a day, metoprolol succinate 100 mg once a day. FINAL DISCHARGE DIAGNOSES: 1. Slurring speech and CT scan showed multiple infarcts involving the basal ganglia, chronic right frontal and left posterior cerebral artery infarct. 2. Hypokalemia, resolved. 3. Hyponatremia, resolved. 4. Hypertensive urgency, also with her blood pressure that is much better controlled. CELIO VALDOVINOS MD DR: JONATHAN/oneil JOB#: [id number] / [id number]
[2019-02-17] MEDS ORDERED: SIMVASTATIN 10 MG TABLET PO SCH (21:00)
[2019-02-17] MEDS ORDERED: ATORVASTATIN CALCIUM 20 MG TABLET PO SCH (21:00)
== END 2019-02-17 16:45 | disposition home or self-care (01) | DRG 65 ==
LOC: ER 13:07 → ICU 17:22
PROVIDERS: ADMIT Internal Medicine; ATTEND Internal Medicine
DX: I63.332 Cerebral infarction due to thrombosis of left posterior cerebral artery (principal); E87.1 Hypo-osmolality and hyponatremia; I16.0 Hypertensive urgency; E78.5 Hyperlipidemia, unspecified; E87.6 Hypokalemia; G93.89 Other specified disorders of brain; H40.9 Unspecified glaucoma; I10 Essential (primary) hypertension; M15.9 Polyosteoarthritis, unspecified; Z82.49 Family history of ischemic heart disease and other diseases of the circulatory system; Z86.73 Personal history of transient ischemic attack (TIA), and cerebral infarction without residual deficits; Z88.8 Allergy status to other drugs, medicaments and biological substances
CPT/HCPCS: 36415; 70450; 80053; 80061; 80307; 81001; 84443; 85025; 85610; 85730; 87086; 93306; 93880; 96361; 96365; 96367; 96375; J0696; J3490; J7050; 97110; 97530; 99291-25; J7030

== ENCOUNTER 2019-04-25 17:37 | Emergency (ER) | payer SELFPAY ==
[~2019-04-25] VITALS: Ht 162.6 cm; Wt 96.0 kg
[~2019-04-25 17:37] MED LIST: AMLO10TA8 PO; ASPI325T8 PO; ATOR20TA PO; HYDR-2145 PO; LISI-334 PO; LISI1TAB20 PO; METO-247 PO; TRAV5DRO EACHEYE
[2019-04-25] MEDS ORDERED: IV NORMAL SALINE 1,000ML 1,000 ML IV SCH (17:46)
--- NOTE | 2019-04-25 18:00 | RAD ---
Exam: CT head INDICATION: Left-sided facial droop TECHNIQUE: Sequential axial images through the head were obtained without the administration of IV contrast. Comparisons: 02/15/2019 FINDINGS: No focal parenchymal lesion or hemorrhage is identified. There is no midline shift or sulcal effacement. Demonstration of chronic infarct at the left CHEF distribution as well as at the posterior right parietal lobe similar to the prior exam. Additionally there are patchy areas of hypointensity within the periventricular white matter which also appears similar compared to the prior study. No acute vascular territory infarction is identified. Foss-white distinction is preserved. The ventricular system is within normal limits without compression hydrocephalus. The basal cisterns are well maintained. The visualized portions of the paranasal sinuses and mastoid air cells are well-pneumatized. No acute fractures. IMPRESSION: Chronic ischemic change without No acute intracranial abnormality identified. If there remains concerns for acute ischemia MRI would better evaluate. Exposure: One or more of the following in the visualized dose reduction techniques were utilized for this examination: 1. Automated exposure control 2. Adjustment of the MA and/or KV according to patient size Use of iterative of reconstructive technique FOR INTERNAL CODING PURPOSES Critical result: Findings discussed with OLGA NOLAN at 04/25/2019 5:53 PM. RESULT CODE: (C) Electronically signed by: Byron Bah MD (04/25/2019 5:57 PM) [id number]
--- NOTE | 2019-04-25 18:12 | EKG ---
[address] [address] Test Date: 2019-04-25 Test Time: 17:57:21 Pat Name: KULWANT REYNOLDS Department: Room: Gender: F Reinsurance Claims Analyst: : 1955 Requested By: MOSES PATEL Order Number: [id number] Reading MD: Measurements Intervals [place] Rate: 104 P: 5 RI: 162 QRS: 43 QRSD: 92 T: -2 QT: 366 QTc: 482 Interpretive Statements SINUS TACHYCARDIA QRS(T) CONTOUR ABNORMALITY CONSISTENT WITH INFERIOR INFARCT AGE UNDETERMINED ABNORMAL ECG RI6.01 No previous ECG available for comparison
[2019-04-25 18:16] LABS: BASO # 0.1 x10^3/uL (0.0-0.2); BASO % 1 % (0-3); EOS # 0.2 x10^3/uL (0.0-0.7); EOS % 3 % (0-3); HEMATOCRIT 35.2 % (36.0-47.0); HEMOGLOBIN 11.9 g/dL (12.0-15.5); LYMPH # 2.6 x10^3/uL (1.0-4.8); LYMPH % 28 % (24-48); MEAN CORPUSCULAR HEMOGLOBIN 29 pg (25-35); MEAN CORPUSCULAR HGB CONC 34 g/dL (31-37); MEAN CORPUSCULAR VOLUME 84 fL (79-100); MONO % 10 % (0-9); NEUT # 5.5 x10^3uL (1.8-7.7); NEUT % 59 % (31-73); PLATELET COUNT 346 x10^3/uL (140-400); RED BLOOD COUNT 4.18 x10^6/uL (3.50-5.40); RED CELL DISTRIBUTION WIDTH 15.5 % (11.5-14.5); WHITE BLOOD COUNT 9.4 x10^3/uL (4.0-11.0)
--- NOTE | 2019-04-25 18:16 | PHYS DOC ---
Past History Past Medical History: Hypertension, Other Additional Past Medical Histor: "eye stroke" macular edema Past Surgical History: , Hysterectomy, Tonsillectomy, Tubal ligation, Other Additional Past Surgical Histo: adnoidectomy Alcohol Use: None Drug Use: None Adult General Chief Complaint Chief Complaint: NEURO SYMPTOMS/DEFICITS HPI HPI 63 year old female presents via EMS with strokelike symptoms. The patient was at home at 1700, when she had a left upper arm contracture that was not voluntary. Her arm stayed stiff and she felt like her left leg was weak for 10 or 15 minutes. After this it went limp and has had some weakness. The patient had was believed to be a stroke in February though an exact location was not identified an MRI. Since then, she has had some left lower extremity weakness at baseline. She states that it feels worse today. She also had some facial droop. This is mostly resolved before my exam. The patient's only new medication is Plavix. She had a full stroke workup couple months ago. She has not had a seizure workup. No history of seizures. She denies fever or chills. Review of Systems Review of Systems Constitutional: Denies fever or chills [] Eyes: Denies change in visual acuity, redness, or eye pain [] HENT: Denies nasal congestion or sore throat [] Respiratory: Denies cough or shortness of breath [] Cardiovascular: No additional information not addressed in HPI [] GI: Denies abdominal pain, nausea, vomiting, bloody stools or diarrhea [] : Denies dysuria or hematuria [] Musculoskeletal: Denies back pain or joint pain [] Integument: Denies rash or skin lesions [] Neurologic: Left arm and left leg weakness, facial droop[] Endocrine: Denies polyuria or polydipsia [] All other systems were reviewed and found to be within normal limits, except as documented in this note. Current Medications Current Medications Current Medications Medications (Trade) Dose Ordered Sig/Fausto Start Time Stop Time Status Last Admin Dose Admin Sodium Chloride 1,000 ml @ 500 mls/hr Q2H 04/25/19 17:46 04/25/19 19:45 Allergies Allergies Allergies Coded Allergies Type Severity Reaction Last Updated Verified codeine Adverse Reaction Mild NAUSEA/ VOMITING 04/25/19 Yes Physical Exam Physical Exam Constitutional: Well developed, well nourished, no acute distress, non-toxic appearance. [] HENT: Normocephalic, atraumatic, bilateral external ears normal, oropharynx moist, no oral exudates, nose normal. [] Eyes: PERRLA, EOMI, conjunctiva normal, no discharge. [] Neck: Normal range of motion, no tenderness, supple, no stridor. [] Cardiovascular:Heart rate regular rhythm, no murmur [] Lungs & Thorax: Bilateral breath sounds clear to auscultation [] Abdomen: Bowel sounds normal, soft, no tenderness, no masses, no pulsatile masses. [] Skin: Warm, dry, no erythema, no rash. [] Back: No tenderness, no CVA tenderness. [] Extremities: No tenderness, no cyanosis, no clubbing, ROM intact, no edema. [] Neurologic: Alert and oriented X 3, 4 out of 5 muscle strength in the left upper and left lower extremity compared to right, face appears symmetrical.[] Psychologic: Affect normal, judgement normal, mood normal. [] Current Patient Data Lab Results Laboratory Tests Test 04/25/19 17:55 Glucose (Fingerstick) 162 mg/dL (70-99) H EKG EKG [] Radiology/Procedures Radiology/Procedures [] Impressions: Exam: CT head INDICATION: Left-sided facial droop TECHNIQUE: Sequential axial images through the head were obtained without the administration of IV contrast. Comparisons: 02/15/2019 FINDINGS: No focal parenchymal lesion or hemorrhage is identified. There is no midline shift or sulcal effacement. Demonstration of chronic infarct at the left DATABASE MANAGER distribution as well as at the posterior right parietal lobe similar to the prior exam. Additionally there are patchy areas of hypointensity within the periventricular white matter which also appears similar compared to the prior study. No acute vascular territory infarction is identified. Foss-white distinction is preserved. The ventricular system is within normal limits without compression hydrocephalus. The basal cisterns are well maintained. The visualized portions of the paranasal sinuses and mastoid air cells are well-pneumatized. No acute fractures. IMPRESSION: Chronic ischemic change without No acute intracranial abnormality identified. If there remains concerns for acute ischemia MRI would better evaluate. Exposure: One or more of the following in the visualized dose reduction techniques were utilized for this examination: 1. Automated exposure control 2. Adjustment of the MA and/or KV according to patient size Use of iterative of reconstructive technique FOR INTERNAL CODING PURPOSES Critical result: Findings discussed with OLGA NOLAN at 04/25/2019 5:53 PM. RESULT CODE: (C) Electronically signed by: Byron Siegel MD (04/25/2019 5:57 PM) [id number] DICTATED AND SIGNED BY: BYRON SIEGEL MD DATE: 04/25/19 712 CC: OLGA NOLAN DO; PCP,NO ~ Course & Med Decision Making Course & Med Decision Making Pertinent Labs and Imaging studies reviewed. (See chart for details) The patient's symptoms seemed to have completely resolved in the emergency room. Her labs are unremarkable except for a sodium of 128. She has mildly elevated blood sugar. She does have evidence for UTI so we'll treat her with nitrofurantoin for 5 days. She is stable for discharge at this time. [] Dragon Disclaimer Dragon Disclaimer This electronic medical record was generated, in whole or in part, using a voice recognition dictation system. Departure Departure: Impression: Primary Impression: UTI (urinary tract infection) Additional Impression: Neurological symptoms Disposition: HOME, SELF-CARE Condition: IMPROVED Referrals: PCP,NO (PCP) Scripts Nitrofurantoin Monohyd/M-Cryst (MACROBID 100 MG CAPSULE) 100 Mg Capsule 1 CAP PO BID for UTI for 5 Days, #10 CAP 0 Refills Prov: OLGA NOLAN DO 04/25/19 Problem Qualifiers OLGA NOLAN DO Apr 25, 2019 18:16
[2019-04-25 18:25] LABS: CREATININE 1.4 mg/dL (0.6-1.0); POTASSIUM 3.8 mmol/L (3.5-5.1)
[2019-04-25 18:48] VITALS: BP 152/48
[2019-04-25 19:30] LABS: AMPHETAMINE/METHAMPHETAMINE NEG (NEG); BARBITURATES NEG (NEG); BENZODIAZEPINES NEG (NEG); CANNABINOIDS NEG (NEG); COCAINE NEG (NEG); METHADONE NEG (NEG); OPIATES NEG (NEG); PHENCYCLIDINE NEG (NEG)
[2019-04-25 20:04] LABS: BACTERIA,URINE MANY /HPF (0-FEW); BILIRUBIN,URINE NEG (NEG); CLARITY,URINE CLEAR; COLOR,URINE YELLOW; GLUCOSE,URINE NEG (NEG); NITRITE,URINE NEG (NEG); RBC,URINE OCC /HPF (0-2); UROBILINOGEN,URINE 0.2 mg/dL (0.2 mg/dL)
[2019-04-25] MEDS ORDERED: NITR100C62 PO (20:46)
[2019-04-25] MEDS ORDERED: NITROFURANTOIN MONOHYD/M-CRYST 100 MG CAPSULE. PO ONE ×2 (20:47→21:00)
== END 2019-04-25 20:50 | disposition home or self-care (01) ==
LOC: ER 17:37
DX: N39.0 Urinary tract infection, site not specified (principal); F48.8 Other specified nonpsychotic mental disorders; R29.810 Facial weakness; I10 Essential (primary) hypertension; Z88.5 Allergy status to narcotic agent
CPT/HCPCS: 36415; 70450; 80048; 80307; 81001; 82947; 84484; 85025; 85610; 85730; 93005; 99285-25; J7030